=== PATIENT | male | born 2000 | race Caucasian/White ===

== ENCOUNTER 2022-02-02 22:07 | Emergency (ER) | payer SELFPAY ==
--- NOTE | ~2022-02-02 | XR_ITS ---
EXAMINATION: CR X-RAY HAND AND WRIST RIGHT CLINICAL INFORMATION: Right hand injury status post fall. COMPARISON: None TECHNIQUE: 3 views of the right hand/wrist were obtained. FINDINGS: There is no acute fracture or dislocation. The joint spaces are unremarkable. The carpal bones are normally aligned. The distal radius and ulna are intact. The soft tissues are unremarkable. XR/XR hand wrist RT IMPRESSION: No acute abnormality.
[2022-02-02 22:13] VITALS: BP 128/59; PULSE 69; RESP 16; TEMP 36.7; O2SAT 96; BMI 20.7
[2022-02-02] MEDS: Acetaminophen 325 MG TABLET 650 MG PO (22:18)
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
== END 2022-02-03 02:01 | disposition home or self-care (01) ==
PROVIDERS: Emergency Provider Emergency Medicine
DX: S63.501A Unspecified sprain of right wrist, initial encounter (principal); W01.0XXA Fall on same level from slipping, tripping and stumbling without subsequent striking against object, initial encounter; Y93.9 Activity, unspecified; Y92.9 Unspecified place or not applicable; Y99.9 Unspecified external cause status
CPT/HCPCS: 29125; 73110; 73130; 99283